=== PATIENT | female | born 1990 | race Caucasian/White ===

== ENCOUNTER → 2016-10-17 | Outpatient (CLI) | payer OTHER | LOC: BMCIMAGING 12:34 | PROVIDERS: ATTEND Family Medicine | DX: M25.562 Pain in left knee (principal) ==

== ENCOUNTER 2017-10-14 07:06 | Day surgery (SDC) | payer OTHER ==
[2017-10-14] MEDS ORDERED: ceFAZolin 2 GM/SWFI 2 GM/20 ML SYR IVP ONE (07:22)
[2017-10-14] MEDS ORDERED: LR 1,000 ML IV ONE (07:23)
[2017-10-14] MEDS ORDERED: ceFAZolin 2 GM/DEXTROSE 100 ML IV ONE (07:30)
[2017-10-14] MEDS ORDERED: LIDOCAINE 1% 300 MG/30 ML SDV ONE (08:00)
[2017-10-14] MEDS ORDERED: BUPIVACAINE 0.25% 30 ML SDV ONE (08:00)
[2017-10-14] MEDS ORDERED: NA BICARBONATE 50 MEQ/50 ML VIAL ONE (08:00)
[2017-10-14] MEDS ORDERED: HYDROGEN PEROXIDE 236 ML BOTTLE TP ONE (08:01)
[2017-10-14] MEDS ORDERED: THROMBIN (BOVINE) 5,000 UNIT VIAL TP ONE (08:01)
[2017-10-14] MEDS ORDERED: METHYLENE BLUE 0.5% 50 MG/10 ML AMP ONE (08:01)
--- NOTE | 2017-10-14 08:14 | PDANEPAE ---
ANE Past Medical History - Cardiovascular History Hx Hypertension: No Hx Arrhythmias: No Hx Chest Pain: No Hx Coronary Artery / Peripheral Vascular Disease: No Hx CHF / Valvular Disease: No Hx Palpitations: No - Pulmonary History Hx COPD: No Hx Asthma/Reactive Airway Disease: Yes Hx Recent Upper Respiratory Infection: No Hx Oxygen in Use at Home: No Hx Sleep Apnea: No Sleep Apnea Screening Result - Last Documented: Negative Pulmonary History Comment: exercise and enviromental allergens - Neurologic History Hx Cerebrovascular Accident: No Hx Seizures: No Hx Dementia: No - Endocrine History Hx Diabetes: No Hypothyroid: Yes Hyperthyroid: No Obesity: no - Renal History Hx Renal Disorders: No - Liver History Hx Hepatic Disorders: No - Neurological & Psychiatric Hx Hx Neurological and Psychiatric Disorders: No - Cancer History Hx Cancer: No - Congenital Disorder History Hx Congenital Disorders: No - GI History GERD: no Hx Gastrointestinal Disorders: No - Other Health History Other Health History: rash around breast - Chronic Pain History Chronic Pain: No - Surgical History Prior Surgeries: none ANE Review of Systems Review of Systems: - Exercise capacity Exercise capacity: >=4 METS METS (RN): 4 METS ANE Patient History - Allergies Allergies/Adverse Reactions: montelukast sodium [From Singulair] Allergy (Verified 10/13/17 17:04) Other-Enter Comments Sulfa (Sulfonamide Antibiotics) Allergy (Verified 10/13/17 17:04) Rash - Home Medications Home Medications: Albuterol 5 mg/ml INH 09/01/15 [Last Taken 09/30/17] Asmanex 09/01/15 [Last Taken 10/14/17 06:30] Augmentin 250/125 MG TAB (*) 10/13/17 [Last Taken 10/13/17 22:30] - NPO status NPO Since - Liquids (Date): 10/13/17 NPO Since - Liquids (Time): 23:30 NPO Since - Solids (Date): 10/13/17 NPO Since - Solids (Time): 22:00 - Anes Hx Hx Anesthesia Complications (with details): NO H/O SURGERY - Smoking Hx Smoking Status: Never smoked - Alcohol Use Alcohol Use: Occasionally - Family Anes Hx Family Anes Hx: neg - N/A Family Hx Anesthesia Complications: pt adopted ANE Labs/Vital Signs - Vital Signs Blood Pressure: 120/80 Heart Rate: 74 Respiratory Rate: 16 O2 Sat (%): 99 Height: 177.8 cm Weight: 83.915 kg ANE Physical Exam - Airway Neck exam: FROM Mallampati Score: Class 1 Mouth exam: normal dental/mouth exam - Pulmonary Pulmonary: no respiratory distress, no rales or rhonchi, clear to auscultation - Cardiovascular Cardiovascular: regular rate and rhythym, no murmur, rub, or gallop - ASA Status ASA Status: II ANE Anesthesia Plan Anesthesia Plan: GA w LMA Total IV Anesthesia: No
[2017-10-14] MEDS ORDERED: MIDAZOLAM 2 MG/2 ML VIAL IVP ONE (08:17)
[2017-10-14] MEDS ORDERED: fentaNYL 100 MCG/2 ML INJ ONE ×2 (09:06→09:35)
[2017-10-14] MEDS ORDERED: PROPOFOL 200 MG/20 ML VIAL ONE (09:06)
[2017-10-14] MEDS ORDERED: ONDANSETRON 4 MG/2 ML VIAL ONE (09:08)
[2017-10-14] MEDS ORDERED: DEXAMETHASONE 4 MG/ML VIAL ONE (09:08)
[2017-10-14] MEDS ORDERED: LIDOCAINE 2% 5 ML SDV ONE (09:08)
[2017-10-14] MEDS ORDERED: KETOROLAC 30 MG/1 ML SDV ONE (09:40)
[2017-10-14] MEDS ORDERED: ACETAMINOPHEN 500 MG TAB PO PRN (09:44)
[2017-10-14] MEDS ORDERED: HYDROmorphONE/DILAUDID 1 MG/ML INJ IVP PRN (09:44)
[2017-10-14] MEDS ORDERED: PHENYLEPHRINE HCL 100 MCG/ML SYR IVP PRN (09:44)
[2017-10-14] MEDS ORDERED: PROMETHAZINE HCL 25 MG/ML INJ IVP PRN (09:44)
[2017-10-14] MEDS ORDERED: MEPERIDINE 25 MG/0.5 ML AMP IVP PRN (09:44)
[2017-10-14] MEDS ORDERED: ONDANSETRON 4 MG/2 ML VIAL IVP PRN (09:44)
[2017-10-14] MEDS ORDERED: fentaNYL 100 MCG/2 ML INJ IVP PRN (09:44)
[2017-10-14] MEDS ORDERED: ALBUTEROL 3 ML DEYVIAL IH PRN (09:44)
[2017-10-14] MEDS ORDERED: HYDROCODONE/APAP 5/325 TAB PO PRN (09:44)
[2017-10-14] MEDS ORDERED: NALOXONE HCL 0.4 MG/ML INJ IVP PRN (09:44)
[2017-10-14] MEDS ORDERED: LR 500 ML IV PRN (09:44)
[2017-10-14] MEDS ORDERED: oxyCODONE IR 5 MG TAB PO PRN (09:44)
--- NOTE | 2017-10-14 10:16 | POSTANESTH ---
Post Anesthetic Evaluation Cardiovascular Status: Normal, Stable Respiratory Status: Normal, Stable Level of Consciousness/Mental Status: Can Participate in Eval Pain Control: Adequate, Prn Tx Ordered Nausea/Vomiting Control: Adequate, Prn Tx Ordered Complications Possibly Related to Anesthesia: None Noted
[2017-10-14 10:29] VITALS: BP 114/77
== END 2017-10-14 11:35 | disposition home or self-care (01) ==
LOC: FSGY 07:06
PROVIDERS: ATTEND Surgery
PROC: 0H9T0ZX Drainage of Right Breast, Open Approach, Diagnostic (ICD-10-PCS; principal; 2017-10-14 08:30)
PROC: 0HBT0ZX Excision of Right Breast, Open Approach, Diagnostic (ICD-10-PCS; principal; 2017-10-14 08:30)
DX: N61.1 Abscess of the breast and nipple (principal); J45.50 Severe persistent asthma, uncomplicated; E03.9 Hypothyroidism, unspecified
CPT/HCPCS: J0690; J1100; J1885; J2250; J2405; J2704; J3010; Q9968